=== PATIENT | female | born 1990 | race African-American/Black ===

== ENCOUNTER 2016-09-29 08:34 | Emergency (ER) | payer MEDICAID ==
[~2016-09-29] VITALS: Ht 160 cm; Wt 61.7 kg
--- NOTE | 2016-09-29 08:43 | NUR ---
Dr. Roberts evaluating patient in triage room.
[2016-09-29 08:49] VITALS: BP 151/73
--- NOTE | 2016-09-29 08:54 | NUR ---
Patient ambulated to bed 5. RN evaluating patient at bedside.
--- NOTE | 2016-09-29 08:56 | NUR ---
26F BIB SELF C/O URINARY PAIN, BURNING, FREQUENCY, DYSURIA, RETENTION, W/ SCANT BLOOD IN THE URINE X THIS MORNING; PT C/O URETHRAL PAIN, BURNING, NON-RADIATING, 6/10 AT THIS TIME; PT STATES TOOK 2 NORCOS 30 MINUTES AGO PRIOR TO ARRIVAL TO ER; PT ALERT, AWAKE, AND ORIENTED X4, PERRLA, BL LUNG SOUNDS CLEAR, RR EVEN/UNLABORED, SKIN IS WARM/DRY/INTACT AT THIS TIME; PT STATES NO PAIN, N/V/D AT THIS TIME; STEADY GAIT; PT RESTING IN BED W/ HOB ELEVATED AND IN LOWEST POSITION; POSTIONED FOR COMFORT; ER MD MADE AWARE OF STATUS. WILL CONTINUE TO MONITOR.
[2016-09-29 09:36] LABS: APPEARANCE,URINE SL CLOUDY (CLEAR); BILIRUBIN,URINE NEGATIVE (NEGATIVE); BLOOD, URINE TRACE-I (NEGATIVE); COLOR,URINE YELLOW (YELLOW); LEUKOCYTE ESTERASE ,URINE TRACE (NEGATIVE); NITRITE, URINE NEGATIVE (NEGATIVE); PH,URINE 5.5 (5.0-9.0); PROTEIN,URINE TRACE (NEGATIVE); UGLUCOSE NEGATIVE (NEGATIVE); UROBILINOGEN,URINE 0.2 EU/dL (0.2 - 1)
[2016-09-29 09:51] LABS: BACTERIA,URINE 1+ /HPF (None Seen); MUCUS,URINE 1+ /LPF (None Seen)
--- NOTE | 2016-09-29 10:03 | NUR ---
PT APPEARS TO BE RESTING COMFORTABLY IN BED; AA&OX4, RR EVEN/UNLABORED, WILL CONTINUE TO FOLLOW.
[2016-09-29] MEDS ORDERED: NACL 0.9% 1,000 ML IV SCH (10:04)
[2016-09-29] MEDS ORDERED: ONDANSETRON 4 MG/2 ML VIAL IVP ONE (10:05)
[2016-09-29] MEDS ORDERED: cefTRIAXone 250 MG in LIDOCAINE 1% ED 0.9 ML IM ONE (10:15)
--- NOTE | 2016-09-29 10:16 | NUR ---
SPOKE W/ ER MD DR. RUBI; STATES CONTINUE W/ NS FLUIDS/ZOFRAN IVP ORDERED.
--- NOTE | 2016-09-29 10:16 | NUR ---
ZOFRAN ADMINISTERED TO RT AC PER ER MD DR. RUBI.
--- NOTE | 2016-09-29 10:16 | NUR ---
IV FLUIDS ADMINISTERED PER ER MD DR RUBI TO RT AC; PER ER MD DR. RUBI, LUKASZ IV FLUIDS.
--- NOTE | 2016-09-29 10:30 | NUR ---
NADR NOTICED FROM NS/ ZOFRAN ADMINISTERED; PT AAO&X4, RESTING COMFORTABLY IN BED; POSITIONED FOR COMFORT; WILL CONTINUE TO MONITOR.
--- NOTE | 2016-09-29 10:50 | NUR ---
IV FLUIDS COMPLETED; PT RECIEVED 1000ML OF NS; STATES " I FEEL A LOT BETTER"; WILL CONTINUE TO FOLLOW.
--- NOTE | 2016-09-29 10:55 | NUR ---
IV removed, catheter intact and site benign. Applied folded 4x4 gauze and tape to stop bleeding. PT TOLERATED PROCEDURE WELL.
[2016-09-29 11:02] VITALS: BP 110/65
--- NOTE | 2016-09-29 11:02 | NUR ---
Patient discharged with v/s stable. Written and verbal after care instructions given and explained. Patient alert, oriented and verbalized understanding of instructions. Ambulatory with steady gait. All questions addressed prior to discharge. ID band removed. Patient advised to follow up with PMD. Rx of DOXYCYCLINE 100MG & NAPROSYN 500MG TAB given. Patient educated on indication of medication including possible reaction and side effects. Opportunity to ask questions provided and answered.
== END 2016-09-29 11:02 | disposition home or self-care (01) ==
LOC: MED 08:34
DX: N30.90 Cystitis, unspecified without hematuria (principal)
CPT/HCPCS: 36415; 81001; 81025; 87086; 96372; 99284; J0696; J2001; J2405; J7030; 87186

== ENCOUNTER 2017-07-07 05:39 | Emergency (ER) | payer MEDICAID ==
[~2017-07-07] VITALS: Ht 162.6 cm; Wt 59.9 kg
[2017-07-07 05:43] VITALS: BP 117/67
--- NOTE | 2017-07-07 05:50 | NUR ---
PT AMBULATED TO BED 4
--- NOTE | 2017-07-07 05:52 | NUR ---
PATIENT IS A 27 Y/O FEMALE WHO PRESENTS TO THE ED C/O URINARY BURNING. PT STATES THAT SHE HAD A KIDNEY INFECTION, BUT RX WAS STOLEN. PT REPORTS 10/10 BURNING VAGINAL PAIN UPON URINATION THAT DOES NOT RADIATE. PT DENIES CP, SOB, N/V/D. PT AAOX4, RR EVEN/UNLABORED. PT REPOSITIONED FOR COMFORT, BED IN LOWEST POSITION. ER MD ARREOLA SECIST NOTIFIED. WILL CONTINUE TO MONITOR.
[2017-07-07] MEDS ORDERED: KETOROLAC 30 MG/ML VIAL IM ONE (06:40)
[2017-07-07 07:01] VITALS: BP 125/82
--- NOTE | 2017-07-07 07:01 | NUR ---
Patient discharged with v/s stable. Written and verbal after care instructions given and explained. Patient alert, oriented and verbalized understanding of instructions. Ambulatory with steady gait. All questions addressed prior to discharge. ID band removed. Patient advised to follow up with PMD. Rx of PHENAZOPYRIDINE HYDROCHLORIDE 100MG AND CIPROFLOXACIN HYDROCHLORIDE 500MG given. Patient educated on indication of medication including possible reaction and side effects. Opportunity to ask questions provided and answered.
== END 2017-07-07 07:01 | disposition home or self-care (01) ==
LOC: MED 05:39
DX: R30.0 Dysuria (principal); M54.5 Low back pain
CPT/HCPCS: 81002; 81025; 96372; 99283; J1885

== ENCOUNTER 2017-12-27 12:33 | Emergency (ER) | payer MEDICAID, OTHER ==
[~2017-12-27] VITALS: Ht 160 cm; Wt 61.2 kg
[2017-12-27 12:39] VITALS: BP 118/73
--- NOTE | 2017-12-27 12:39 | NUR ---
Patient ambulated to bed 10.
--- NOTE | 2017-12-27 12:44 | NUR ---
URINE CUP HANDED TO PT
--- NOTE | 2017-12-27 12:44 | NUR ---
PATIENT PRESENTS TO ED WITH DYSURIA , BURNING PAIN UPON VOIDING , AND URGENCY X YESTERDAY . PT STATES . DENIES N/V/D; SKIN IS PINK/WARM/DRY; AAOX4 WITH EVEN AND STEADY GAIT; LUNGS CLEAR BL; HR EVEN AND REGULAR; PT DENIES ANY FEVER, CP, SOB, OR COUGH AT THIS TIME; PATIENT STATES PAIN OF 5/10 AT THIS TIME; VSS; PATIENT POSITIONED FOR COMFORT; HOB ELEVATED; BEDRAILS UP X2; BED DOWN. ER MD MADE AWARE OF PT STATUS.
[2017-12-27] MEDS ORDERED: PHENAZOPYRIDINE 100 MG TAB PO ONE (13:40)
[2017-12-27] MEDS ORDERED: SULFAMETH/TRIMETH DS 800/160MG 1 TAB PO ONE (13:40)
[2017-12-27 14:12] VITALS: BP 118/73
--- NOTE | 2017-12-27 14:12 | NUR ---
Patient discharged with v/s stable. Written and verbal after care instructions given and explained. Patient alert, oriented and verbalized understanding of instructions. Ambulatory with steady gait. All questions addressed prior to discharge. ID band removed. Patient advised to follow up with PMD. Rx of PYRIDIUM AND BACTRIM given. Patient educated on indication of medication including possible reaction and side effects. Opportunity to ask questions provided and answered.
== END 2017-12-27 14:12 | disposition home or self-care (01) ==
LOC: MED 12:33
DX: N39.0 Urinary tract infection, site not specified (principal)
CPT/HCPCS: 81002; 81025; 99283

== ENCOUNTER 2019-10-28 07:52 | Emergency (ER) | payer OTHER ==
[~2019-10-28] VITALS: Ht 160 cm; Wt 72.6 kg
[2019-10-28 07:57] VITALS: BP 141/77
--- NOTE | 2019-10-28 08:13 | NUR ---
29 Y/O FEMALE PRESENTS WITH COMPLAINT OF CHEST CONGESTION. PT POINTS TO HER CHEST AND STATES "IT FEELS LIKE SOMETHING IS GOING ON HERE". DENIES ANY PAIN, COUGH, SOB. VSS. SP02 100% RA. VSS. LUNG SOUNDS CLEAR IN BILAT LOBES. PT STATES SHE HAD A SORE THROAT A WEEK AGO BUT IS NOT HAVING PAIN AT THIS TIME. SKIN COOL/DRY. PT IS AFEBRILE. RESP EVEN AND UNLABORED. AMBULATORY NO PMH NKA
[2019-10-28 09:10] VITALS: BP 141/77
--- NOTE | 2019-10-28 09:10 | NUR ---
Patient discharged with v/s stable. Written and verbal after care instructions given and explained. Patient alert, oriented and verbalized understanding of instructions. Ambulatory with steady gait. All questions addressed prior to discharge. ID band removed. Patient advised to follow up with PMD. Rx of PROTONIX, MOTRIN, FLAGYL given. Patient educated on indication of medication including possible reaction and side effects. Opportunity to ask questions provided and answered.
== END 2019-10-28 09:10 | disposition home or self-care (01) ==
LOC: MED 07:52
DX: J02.8 Acute pharyngitis due to other specified organisms (principal); B96.89 Other specified bacterial agents as the cause of diseases classified elsewhere; K21.9 Gastro-esophageal reflux disease without esophagitis; R03.0 Elevated blood-pressure reading, without diagnosis of hypertension; H92.03 Otalgia, bilateral
CPT/HCPCS: 99283

== ENCOUNTER 2022-02-07 19:51 | Emergency (ER) | payer OTHER ==
[~2022-02-07] VITALS: Ht 160 cm; Wt 68.0 kg
[2022-02-07 20:13] VITALS: BP 96/60
[2022-02-07 20:48] VITALS: BP 119/81
--- NOTE | 2022-02-07 20:49 | NUR ---
Dr. Wade at bedside examining pt.
[2022-02-07] MEDS ORDERED: PHEN-1877 PO (21:03)
[2022-02-07] MEDS ORDERED: IBUP-2213 PO (21:03)
[2022-02-07] MEDS ORDERED: CIPR500T4 PO (21:03)
--- NOTE | 2022-02-07 21:23 | NUR ---
Patient discharged with v/s stable. Written and verbal after care instructions given and explained. Patient alert, oriented and verbalized understanding of instructions. Ambulatory with steady gait. All questions addressed prior to discharge. ID band removed. Patient advised to follow up with PMD. Rx of cipro, pyridium, and motrin given. Patient educated on indication of medication including possible reaction and side effects. Opportunity to ask questions provided and answered.
== END 2022-02-07 21:23 | disposition home or self-care (01) ==
LOC: MED 19:51
DX: N39.0 Urinary tract infection, site not specified (principal); F12.90 Cannabis use, unspecified, uncomplicated; Z72.89 Other problems related to lifestyle
CPT/HCPCS: 81002; 81025; 87086; 99283

== ENCOUNTER 2022-02-11 21:45 | Emergency (ER) | payer OTHER ==
[~2022-02-11] VITALS: Ht 160 cm; Wt 68.5 kg
[~2022-02-11 21:45] MED LIST: CIPR500T4 PO; IBUP-2213 PO; PHEN-1877 PO
[2022-02-11 22:34] VITALS: BP 122/71
--- NOTE | 2022-02-11 22:50 | NUR ---
URINE COLLECTED AND WALKED TO LAB
[2022-02-11 22:57] LABS: APPEARANCE,URINE CLEAR (CLEAR); BILIRUBIN,URINE NEGATIVE (NEGATIVE); BLOOD, URINE 2+ (NEGATIVE); COLOR,URINE YELLOW (YELLOW); LEUKOCYTE ESTERASE ,URINE TRACE (NEGATIVE); NITRITE, URINE NEGATIVE (NEGATIVE); UGLUCOSE NEGATIVE (NEGATIVE)
[2022-02-11 23:16] LABS: RBC,URINE 0-5 /HPF (0-5)
--- NOTE | 2022-02-12 00:11 | NUR ---
Dr. Camacho examining patient.
[2022-02-12] MEDS ORDERED: CIPR500T4 PO (00:24)
[2022-02-12 01:10] VITALS: BP 120/71
--- NOTE | 2022-02-12 01:10 | NUR ---
Patient discharged with v/s stable. Written and verbal after care instructions given and explained for urinary tract infection, adult. Patient alert, oriented and verbalized understanding of instructions. Ambulatory with steady gait. All questions addressed prior to discharge. ID band removed. Patient advised to follow up with PMD. Rx of Cipro given. Patient educated on indication of medication including possible reaction and side effects. Opportunity to ask questions provided and answered.
== END 2022-02-12 01:10 | disposition home or self-care (01) ==
LOC: MED 21:45
DX: N39.0 Urinary tract infection, site not specified (principal); F12.90 Cannabis use, unspecified, uncomplicated; Z79.899 Other long term (current) drug therapy
CPT/HCPCS: 81001; 87086; 99283

== ENCOUNTER 2022-02-23 20:43 | Emergency (ER) | payer OTHER ==
[~2022-02-23] VITALS: Ht 160 cm; Wt 68.0 kg
[2022-02-23 20:48] VITALS: BP 106/65
--- NOTE | 2022-02-23 20:54 | NUR ---
PT AMB TO BED 5
--- NOTE | 2022-02-23 21:12 | NUR ---
Patient being evaluated by physician at bedside.
[2022-02-23 22:20] LABS: BILIRUBIN,URINE NEGATIVE (NEGATIVE); BLOOD, URINE TRACE-I (NEGATIVE); COLOR,URINE YELLOW (YELLOW); LEUKOCYTE ESTERASE ,URINE 1+ (NEGATIVE); NITRITE, URINE NEGATIVE (NEGATIVE); UGLUCOSE NEGATIVE (NEGATIVE)
[2022-02-23 22:34] LABS: APPEARANCE,URINE SLIGHTLY HAZY (CLEAR)
[2022-02-23 22:38] LABS: RBC,URINE 0-5 /HPF (0-5)
[2022-02-23] MEDS ORDERED: NITR100C7 PO (22:56)
[2022-02-23 23:06] VITALS: BP 106/65
--- NOTE | 2022-02-23 23:06 | NUR ---
Patient discharged with v/s stable. Written and verbal after care instructions given and explained. Patient alert, oriented and verbalized understanding of instructions. Ambulatory with steady gait. All questions addressed prior to discharge. ID band removed. Patient advised to follow up with PMD. Rx of MACROBID given. Patient educated on indication of medication including possible reaction and side effects. Opportunity to ask questions provided and answered. DX: URINARY TRACT INFECTION, ADULT
== END 2022-02-23 23:06 | disposition home or self-care (01) ==
LOC: MED 20:43
DX: N39.0 Urinary tract infection, site not specified (principal); R30.0 Dysuria; Z79.899 Other long term (current) drug therapy
CPT/HCPCS: 81001; 81025; 87086; 87210; 87491; 99283

== ENCOUNTER 2022-04-07 05:44 | Emergency (ER) | payer OTHER ==
[~2022-04-07] VITALS: Ht 160 cm; Wt 68.0 kg
[~2022-04-07 05:44] MED LIST changes: +NITR100C7 PO
--- NOTE | 2022-04-07 06:01 | NUR ---
TO BED AMBULATORY
--- NOTE | 2022-04-07 06:32 | NUR ---
ERMD AT BEDSIDE
[2022-04-07] MEDS ORDERED: KETOROLAC 30 MG/ML VIAL IM ONE (06:35)
--- NOTE | 2022-04-07 06:36 | NUR ---
SWABS COLLECTED AND WALKED TO LAB
--- NOTE | 2022-04-07 06:42 | NUR ---
ZARINA REFUSED TO GET PREG FOR TORADOL MEDS, BUT STILL WANTED TO RECEIVE MEDICATION. EDUCATED ON RISK.
--- NOTE | 2022-04-07 06:51 | NUR ---
Patient discharged with v/s stable. Written and verbal after care instructions given and explained. Patient verbalized understanding. Ambulatory with steady gait. All questions addressed prior to discharge. Advised to follow up with PMD.
== END 2022-04-07 06:51 | disposition home or self-care (01) ==
LOC: MED 05:44
DX: J02.8 Acute pharyngitis due to other specified organisms (principal); Z20.822 Contact with and (suspected) exposure to COVID-19; F17.200 Nicotine dependence, unspecified, uncomplicated
CPT/HCPCS: 87426; 87804; 96372; 99283; J1885